=== PATIENT | female | born 1945 | race Caucasian/White ===

== ENCOUNTER 2016-08-10 06:27 | Day surgery (SDC) | payer MEDICARE, OTHER ==
[2016-08-09 10:58] LABS: HEMATOCRIT 46.5 % (36.0-48.0); MCH 31.7 pg (26.0-34.0); MCHC 34.4 g/dL (31.0-37.0); MCV 92.3 fL (80.0-100.0); MEAN PLATELET VOLUME 10.3 fL (7.4-10.4); RBC 5.04 10x6/uL (4.00-5.40); RDW 14.1 % (11.5-14.5); WBC 9.2 10x3/uL (4.8-10.8)
[~2016-08-10] VITALS: Ht 160 cm; Wt 58.1 kg
[~2016-08-10 06:27] MED LIST: PREMARIN0.625 MG PO
[2016-08-10 09:29] VITALS: BP 151/81; Ht 160 cm; Wt 58.1 kg
--- NOTE | 2016-08-10 10:18 | NUR ---
1015 PATIENT REQUESTED NOT TO TAKE TYLENOL
[2016-08-10] MEDS ORDERED: HYDROCODONE-APA1 TAB PO (14:42)
--- NOTE | 2016-08-10 18:21 | NUR ---
1530 IV DC WITH CATHER TIP INTACT
--- NOTE | 2016-09-10 16:46 | OP ---
PATIENT NAME: KEE FUNK MEDICAL RECORD: [id number] :41 LOCATION:D.OPS ADMISSION DATE: SURGEON: SARAH BRANDON MD DATE OF OPERATION: 08/10/2016 PREOPERATIVE DIAGNOSIS: Rotator cuff tear of the right shoulder with impingement syndrome and acromioclavicular arthritis. POSTOPERATIVE DIAGNOSIS: Rotator cuff tear of the right shoulder with impingement syndrome and acromioclavicular arthritis. PROCEDURES: Right shoulder arthroscopy with arthroscopic rotator cuff repair, arthroscopic subacromial decompression and arthroscopic distal clavicle excision done through a separate incision. SURGEON: Sarah Brandon MD. ANESTHESIA: General. INTRAOPERATIVE COMPLICATIONS: None. SUMMARY OF PATHOLOGIC FINDINGS: The patient was indeed found with the findings as above. OPERATIVE SUMMARY IN DETAIL: After obtaining the appropriate orthopedic surgery consent as well as anesthetic consultation, evaluation and clearance, the patient was placed on the operating table in a supine position. After adequate general laryngeal mask was administered, the patient was placed in a left lateral decubitus position. All pressure points were well padded to include down leg peroneal nerve pad as well as axillary roll. The patient was held firmly to the operating table using the vacuum pack suction system. Right upper extremity and shoulder were prepped and draped in a routine sterile fashion. The leg was elevated and exsanguinated, tourniquet inflated to 350 mmHg. Routine posterior portal was created. This was followed by anterior portal. Diagnostic arthroscopy did reveal the above findings. A separate lateral arthroscopic portal was created through which the rotator cuff tear portal was created, taken down on the torn rotator cuff and decortication of the supraspinatus tendinous footprint was then followed by arthroscopy in the subacromial space. A 5-0 barrel jarocho was used to perform an acromioplasty and release the coracoacromial ligament through a separate arthroscopic anterior portal. The distal clavicle was a size +5 cm. Two #2 FiberWires were then placed in a vertical mattress fashion and anchored laterally with SwiveLocks from [employer]. Having completed this, arthroscopy portals were closed in routine interrupted fashion using 4-0 Prolene. Sterile dressings were applied. The patient was awakened and taken to the recovery room in stable condition. All final needle and sponge counts were correct. TRANSINT:[id number] Voice Confirmation ID: [id number] DOCUMENT ID: [id number] OPERATIVE REPORT [id number] KEE FUNK MD, SARAH BLACK at 1646 CC: [id number] DICTATION DATE: 09/07/16 1021 ACCOUNT RELATIONSHIP MANAGER: 09/07/16 1230 [facility] 08/10/16 [place] [id number] [place] [id number]
== END 2016-08-10 15:00 | disposition home or self-care (01) ==
LOC: D.OPS 06:27 → D.PAN 09:15 → D.OPS 12:30 → D.PAN 13:45 → D.OPS 15:00
PROVIDERS: Anesthesiology
DX: M75.101 Unspecified rotator cuff tear or rupture of right shoulder, not specified as traumatic (principal); M75.41 Impingement syndrome of right shoulder; M19.011 Primary osteoarthritis, right shoulder; Z01.812 Encounter for preprocedural laboratory examination

== ENCOUNTER → 2016-12-12 16:36 | Outpatient (CLI) | payer MEDICARE, OTHER ==
[2016-08-10 09:29] VITALS: BMI 22.7
[~2016-12-12 16:36] MED LIST changes: +HYDROCODONE-APA1 TAB PO
== END | disposition home or self-care (01) ==
LOC: D.MAMMO 11-27 11:00
DX: Z12.31 Encounter for screening mammogram for malignant neoplasm of breast (principal)

== ENCOUNTER → 2017-02-27 21:14 | Outpatient (CLI) | payer MEDICARE, OTHER ==
[2016-08-10 09:29] VITALS: BMI 22.7
== END | disposition home or self-care (01) ==
LOC: D.MAMMO 01-26 11:00
DX: R92.8 Other abnormal and inconclusive findings on diagnostic imaging of breast (principal)

== ENCOUNTER 2017-07-30 08:00 | Outpatient (CLI) | payer MEDICARE, OTHER ==
[2016-08-10 09:29] VITALS: BMI 22.7
== END 2017-07-30 09:00 | disposition home or self-care (01) ==
LOC: D.MAMMO 08:00
DX: R92.8 Other abnormal and inconclusive findings on diagnostic imaging of breast (principal)

== ENCOUNTER → 2018-03-01 07:44 | Outpatient (CLI) | payer MEDICARE, OTHER ==
[2016-08-10 09:29] VITALS: BMI 22.7
--- NOTE | 2018-03-08 12:11 | ST ---
PATIENT:KEE FUNK MEDICAL RECORD: [id number] SEX: F LOCATION:[facility] ORDER #: ADMISSION DATE: 03/01/18 AGE OF PATIENT: 72 REFERRING PHYSICIAN: INTERPRETING PHYSICIAN: RONALDO VINSON MD DATE OF SERVICE: 03/01/2018 PROCEDURE: Nuclear stress test. INDICATIONS: Angina, coronary artery disease, shortness of breath, hypertension. PROCEDURE DETAILS: The patient was exercised on standard Panfilo protocol for 5 minutes, terminated due to achievement of maximum target heart rate response with 30 mCi of sestamibi injected at peak stress, 10 mCi were used previously for rest images. FINDINGS: Gated SPECT reveals preserved ejection fraction at 64% with good wall motion and thickening and brightening throughout all segments. SPECT imaging Cardiolite was used as myocardial fusion agent. There is homogeneous uptake throughout all segments at rest and stress with no evidence of inducible ischemia or previous infarction. OVERALL IMPRESSION: 1. This is a normal nuclear stress test with no evidence of inducible ischemia or previous infarction. 2. Gated SPECT reveals a preserved ejection fraction at 64%. In this patient with ongoing symptomatology, the current scan does not suggest the presence of hemodynamically significant coronary artery disease. Evaluate noncardiac etiology of chest pain. TRANSINT:[id number] Voice Confirmation ID: [id number] DOCUMENT ID: [id number] RONALDO VINSON MD at 1211 CC: LEONORA MCCURDY MD [id number] DICTATION DATE: 03/01/18 1522 CLERK SECRETARY: 03/02/18 0013 DEP CLI 03/01/18 [place] [id number] [place] [address]
== END | disposition home or self-care (01) ==
LOC: D.HCCARDIO 07:44
DX: I20.9 Angina pectoris, unspecified (principal)